=== PATIENT | male | born 1940 ===

== ENCOUNTER 2017-03-05 02:30 | Inpatient (IN) | payer OTHER ==
[~2017-03-05] VITALS: Ht 165.1 cm; Wt 62.1 kg
[~2017-03-05 02:30] MED LIST: FLOMAX0.4 M1 PO; MICARDIS HCT 81 EAC1 PO; OMEPRAZOLE20 M2 PO
[2017-03-05 06:39] LABS: ABSOLUTE BASOPHIL COUNT 0 /CUMM (0.0-0.2); ABSOLUTE EOSINOPHIL COUNT 0.2 /CUMM (0.0-0.7); ABSOLUTE GRANULOCYTE CT 4.1 /CUMM (1.4-6.5); ABSOLUTE LYMPH COUNT 2.6 /CUMM (1.2-3.4); ABSOLUTE MONOCYTE COUNT 0.4 /CUMM (0.10-0.60); BASOPHIL % 0.6 % (0.0-2.0); EOSINOPHIL % 2.6 % (0-5); GRANULOCYTE % 56.1 % (42.2-75.2); HEMATOCRIT 40.4 % (42-52); MEAN CORPUSCULAR HGB 29.1 PG (27.0-31.0); MEAN CORPUSCULAR HGB CONC 33.3 G/DL (33.0-37.0); MEAN CORPUSCULAR VOLUME 87.4 FL (80.0-94.0); PLATELET COUNT 293 /CUMM (130-400); PT 10.8 SEC (9.4-12.5); PTT 31 SEC (25-37); RBC DISTRIBUTION WIDTH 14.1 % (11.5-14.5); RED BLOOD CELL CT 4.63 /CUMM (4.70-6.10); WHITE BLOOD CELL COUNT 7.3 /CUMM (4.8-10.8)
--- NOTE | 2017-03-05 07:35 | History & Physical Pre-Op ---
General Information and HPI MD Statement: I have seen and personally examined LORNA ZENG and documented this H&P. The patient is a 76 year old M who presented with a patient stated chief complaint of NECK PAIN RADIATING TO RIGHT ARM WITH PROGRESSIVE WEAKNESS. Source of Information: patient, family Exam Limitations: no limitations History of Present Illness: Mr. Zeng is a 76y/o male who is c/o 2 year history of progressively worsening neck pain radiating to his right arm with numbness, tingling, and weakness. HE c /o headaches and dizziness. Pain level is 8/10 in intensity. His MRI reveals severe spinal stenosis at C4-5, C5-6, and C6-7 with nerve impingement consistent with his symptoms. He cannot stand the pain any longer and due to his progressively worsening weakness, he has risk of permanent paralysis. He wants nothing more to do with nonsurgical treatment and has been scheduled for an Anterior/Posterior Cervical decompression/Fusion C4-7 with Instr./ICBG on 2016. Allergies/Medications Allergies: Coded Allergies: No Known Allergies (03/03/17) Home Med list Omeprazole 20 MG CAPSULE.DR 1 CAP PO DAILY GERD (Reported) Tamsulosin HCl (Flomax) 0.4 MG CAP.ER.24H 1 CAP PO DAILY BPH (Reported) Telmisartan/Hydrochlorothiazid (Micardis Hct 80-25 MG Tablet) 80 MG-25 MG TABLET 1 TAB PO DAILY HTN (Reported) Compliance With Home Meds: GOOD Past History Medical History Neurological: NONE EENT: NONE Cardiovascular: hypertension Respiratory: lung cancer history Gastrointestinal: GERD Hepatic: NONE Renal: benign prost hyperplasia Musculoskeletal: disk herniation, degen joint disease, osteoarthritis, spinal stenosis Psychiatric: NONE Endocrine: NONE Blood Disorders: NONE Cancer(s): lung cancer 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 Psychosocial History Where Do You Live? 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 Exam & Diagnostic Data Physical Exam: Weight: 137lbs. Height: 5'3" Physical Exam General Appearance Alert, Oriented X3, Cooperative, No Acute Distress Skin No Rashes, No Breakdown, No Significant Lesion HEENT Atraumatic, PERRLA, EOMI, Mucous Membr. moist/pink Neck Supple, No JVD, No thryomegaly, +2 Carotid Pulse wo Bruit Lymphatic Cervical nl Cardiovascular Regular Rate, Normal S1, Normal S2, No Murmurs Lungs Clear to Auscultation Abdomen Normal Bowel Sounds, Soft, No Tenderness, No Hepatospenomegaly, No Masses Neurological Normal Speech, right cupola patcher +3/5. Weak triceps, biceps on right +3/5. , absent tim. upper extremity reflexes., right wrist clonus, +Coughlin's on the right. Extremities No Clubbing, No Cyanosis, No Edema, Normal Pulses Vascular Normal Pulses Last 24 Hrs of Labs/Rodrick: Laboratory Tests 03/05/17 0612: Anion Gap 10, Estimated GFR 59 L, BUN/Creatinine Ratio 12.5, Glucose 103 H, Calcium 9.6, Total Bilirubin 0.7, AST 20, ALT 27, Alkaline Phosphatase 74, Total Protein 7.0, Albumin 4.3, Globulin 2.7, Albumin/Globulin Ratio 1.6, PT 10.8, INR 1.03, APTT 31, CBC w Diff NO MAN DIFF REQ, RBC 4.63 L, MCV 87.4, MCH 29.1, RDW 14.1, MPV 8.0, Gran % 56.1, Lymphocytes % 35.0, Monocytes % 5.7, Eosinophils % 2.6, Basophils % 0.6, Absolute Granulocytes 4.1, Absolute Lymphocytes 2.6, Absolute Monocytes 0.4, Absolute Eosinophils 0.2, Absolute Basophils 0, PUBS MCHC 33.3, Urine Color YEL, Urine Clarity CLEAR, Urine pH 6.0, Ur Specific [place] 1.010, Urine Protein NEG, Urine Ketones NEG, Urine Nitrite NEG, Urine Bilirubin NEG, Urine Urobilinogen 0.2, Ur Leukocyte Esterase NEG, Ur Microscopic EXAM NOT REQUIRED, Urine Hemoglobin NEG, Urine Glucose NEG Assessment/Plan Assessment/Plan: Assessment: Severe C4-5, C5-6, 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 Plan: Mr. Zeng is scheduled for an Anterior/Posterior Cervical Decompression/ Fusion C4-7 with Instr./ICBG on 03/05/17. We discussed the procedure in full detail as well as the pre and postoperative curse, follow-up care, anticipated recovery, and discharge instructions. We also discussed the risks not to exclude , paralysis, infection, bleeding, continued pain, failure of the surgery, need for future surgery, DVT, vascular injury, CSF leak, dysphagia, horseness, etc. and given these risks, he still wishes to proceed. He was cleared medically. Any changes in this patient's plan is based on this patient's outpatient clinical presentation. As Ranked By This Provider Problem List: 1. Hypertension 2. BPH (benign prostatic hyperplasia) 3. GERD (gastroesophageal reflux disease) Copies To: BAUDILIO HUNT,JOSE Attending MD Review Statement Attending Statement Attending MD Statement: examined this patient, discuss w/resident/PA/STONE CUTTER, agreed w/resident/PA/STONE CUTTER, reviewed images
--- NOTE | 2017-03-05 10:27 | Operative Report ---
Operative/Inv Procedure Report Surgery Date: 03/05/17 Name of Procedure: Anterior cervical discectomy decompression C45 C5 6 C6 7. Interdiscal cage fusion with autograft. Anterior plate fixation C 4 through C7. Harvesting of morselized iliac crest left crest anterior. Reconstruction of bone graft site with Master graft implant. Use of fluoroscopy. Pre-Operative Diagnosis: Cervical spinal stenosis C4 5 C5 6 C6 7 Post-Operative Diagnosis: Same additional diagnoses osteoporosis. Estimated Blood Loss: less than 50ml Surgeon/Snailer: BAUDILIO HUNT,JOSE ROWLAND Anesthesia: general endotracheal tube Operative/Procedure Note Note: After adequate anesthesia was achieved the place patient was placed in the supine position with the head turned left and the shoulders taped to the side. The right side of the neck and left anterior iliac crest was sterile prepped and draped. A longitudinal incision was created with the scalpel carried sharply through the platysma. Blunt dissection was carried medial to the neurovascular bundle lateral to the visceral structures and a metallic optic was placed. Fluoroscopy was used to identify surgical level. Sharp enterotomies were created and C4 5 C5 6 and C6 7. The curettes and rongeurs were used to perform discectomies at all 3 levels. There is severe degenerative changes and foraminal stenosis on the right side consistent with the clinical findings. The endplates were debrided with the high-speed bur at all 3 levels. An incision was made over the left anterior iliac crest. The oscillating saw was used to collect morcellized bone graft. The wound was irrigated and packed with Master graft. A closure of the fascia was performed with absorbable suture the skin was closed with maru. The disc space sizes were identified to be 6 mm 6 mm 7 mm. The cages were packed with bone tamped into position well away from the neural canal under fluoroscopic guidance. The anterior plate was applied from C4 to C7. Marginal purchase was achieved at all 8 screws. During harvesting the bone graft patient was identified to suffer from osteoporosis relatively severe. In discussions with anesthesia decision was made to close the wound and stage the procedure due to the patient's frail medical condition. AP and lateral fluoroscopy showed appropriate position of the hardware. He was irrigated and hemostasis been achieved. The platysma was closed with a running absorbable suture the skin was closed with nylon. After placement sterile dressings a cervical collar was placed the patient was transferred to the stretcher and recovery room.
--- NOTE | 2017-03-05 11:17 | Patient Discharge Instructions ---
Acute Coronary Syndrome Inclusion Criteria At DC or during hospital stay patient has or had the following: ACS DIAGNOSIS No Discharge Core Measures Meds if any: Prescribed or Continued at Discharge Meds if any: NOT Prescribed or Continued at Discharge Congestive Heart Failure Inclusion Criteria At DC or during hospital stay patient has or had the following: CHF DIAGNOSIS No Discharge Core Measures Meds if any: Prescribed or Continued at Discharge Meds if any: NOT Prescribed or Continued at Discharge Cerebrovascular accident Inclusion Criteria At DC or during hospital stay patient has or had the following: CVA/TIA Diagnosis No Discharge Core Measures Meds if any: Prescribed or Continued at Discharge Meds if any: NOT Prescribed or Continued at Discharge Venous thromboembolism Inclusion Criteria VTE Diagnosis No VTE Type NONE VTE Confirmed by (Test) NONE Discharge Core Measures - Per Current guidelines, there needs to be overlap - treatment for the first 5 days of Warfarin therapy. - If discharged on Warfarin prior to 5 days of - overlap therapy, the patient will need to be - assessed for post discharge needs including - *Post discharge parental anticoagulation - *Warfarin and/or parental anticoagulation education - *Follow up date to check INR post discharge At least 5 days overlap therapy as Inpatient No Meds if any: Prescribed or Continued at Discharge Note: Overlap Therapy is Warfarin and Anticoagulant Meds if any: NOT Prescribed or Continued at Discharge
[2017-03-05] MEDS ORDERED: VITAMIN D31000 UNI2 PO (11:19)
[2017-03-05] MEDS ORDERED: PERCOCET 5-3251 EACH PO (11:25)
[2017-03-05] MEDS ORDERED: CALCIUM CARBON500 M2 PO (11:25)
[2017-03-05] MEDS ORDERED: DOCUSATE SODIU100 M3 PO (11:25)
[2017-03-05] MEDS ORDERED: BISAC-EVAC10 M1 PR (11:25)
[2017-03-05] MEDS ORDERED: ONE DAILY MULT1 EAC2 PO (11:25)
[2017-03-05] MEDS ORDERED: MILK OF MA400 MG/52 PO (11:25)
[2017-03-05] MEDS ORDERED: TYLENOL325 M1 PO (11:25)
--- NOTE | 2017-03-05 11:44 | RADIOLOGY REPORT ---
EXAMINATION: XR CERVICAL SPINE CLINICAL INFORMATION: Cervical fusion C4 C7 performed in operating room. COMPARISON: None TECHNIQUE: Fluoroscopic imaging of cervical spine was utilized by Dr. Cuevas within the operating room. Number of saved fluoroscopic images: 6. Fluoroscopy time: 0.6 minutes. Dose: 5.51 mGy. FINDINGS: Patient intubated within operating room. Discectomy and fusion of C4-C5, C5-C6 and C6-C7. The final AP and lateral fluoroscopic images show satisfactory position and alignment of the anterior fusion plate and vertebral body screws. Cervical alignment is anatomic. IMPRESSION: Fluoroscopic imaging assistance provided to the operating room during multilevel discectomy and anterior fusion at C4 - C7.
--- NOTE | 2017-03-05 13:00 | NUR ---
PATIENT ARRIVED ON UNIT FROM PACU. PATIENT ADMITTED S/P ANTERIO POSTERIO DECOMPRESSION/FUSSION OF C6 -C7. HX OF DJD AND OSTEOARTHRITIS. PATIENT IS ALERT AND ORIENTATED X3. VSS. SOFT CERVICAL COLLAR IN PLACE. DSG CDI UNDERNEATH. PATIENT ALSO HAS LEFT HIP DSG CDI. GOOD CMS. CARDIOPULMONARY STABLE. VOIDED 200CC OF CLEAR YELLOW URINE. IV FLUIDS LR AT 80CC/HR. ORIENTATED TO ROOM AND CALL LIGHT. WILL FOLLOW PLAN OF CARE.
[2017-03-05 13:17] VITALS: BP 166/78
--- NOTE | 2017-03-05 14:42 | Cons- Medical ---
NEREIDA HUANG 03/05/17 1442: General Information and HPI Consulting Request Date of Consult: 03/05/17 Requested By: JOSE ASTUDILLO MD Source of Information: patient, family, old records Exam Limitations: no limitations History of Present Illness: Patient is a 76-year-old gentleman with past medical history significant for hypertension, hyperlipidemia, lung cancer status post right lobectomy, GERD, degenerative disc disease with herniation, history of severe cervical spinal stenosis leading to progressive worsening neck pain and was admitted to [facility] under surgical service for Anterior/Posterior Cervical decompression/ Fusion C4-7 with autograft. Doing the patient, blood pressure was elevated systolic between 170-180 ,patient was given IV antihypertensive once and his blood pressure improved. No evidence of bradycardia. Preop EKG showed normal sinus rhythm. Patient mentioned that he took his medications before coming to the surgery today. He usually takes Micardis(combination of losartan and hydrochlorothiazide) with tamsulosin for BPH. At the time of evaluation patient denied any chest of heart trouble breathing palpitations. Diet has been resumed, denies any nausea or abdominal pain. Still reports some soreness around the surgical site. Allergies/Medications Allergies: Coded Allergies: No Known Allergies (03/03/17) Home Med List: Acetaminophen (Tylenol) 325 MG TABLET 650 MG PO Q4P PRN TEMP > 101.5 Bisacodyl (Bisac-Evac) 10 MG SUPP.RECT 10 MG VT DAILY NEEDED PRN CONSTIPATION Calcium Carbonate 500 MG CALCIUM (1,250 MG) TABLET 600 MG PO BID BONE HEALTH Cholecalciferol (Vitamin D3) 1,000 UNIT TABLET 1 TAB PO DAILY BONE HE[facility] ( Reported) Docusate Sodium 100 MG CAPSULE 100 MG PO BID CONSTIPATION Magnesium Hydroxide (Milk Of Magnesia) 400 MG/5 ML ORAL.SUSP 30 ML PO AT BEDTIME PRN CONSTIPATION Multivitamin (One Daily Multivitamin) 1 EACH TABLET 1 TAB PO DAILY GENERAL HEALTH Omeprazole 20 MG CAPSULE.DR 1 CAP PO DAILY GERD (Reported) Oxycodone HCl/Acetaminophen (Percocet 5-325 MG Tablet) 5 MG-325 MG TABLET 2 TAB PO Q4P PRN PAIN SCALE 4-6 (MODERATE) 1-2 TABS PO Q 4-6 HRS PRN PAIN Tamsulosin HCl (Flomax) 0.4 MG CAP.ER.24H 1 CAP PO DAILY BPH (Reported) Telmisartan/Hydrochlorothiazid (Micardis Hct 80-25 MG Tablet) 80 MG-25 MG TABLET 1 TAB PO DAILY HTN (Reported) Review of Systems Review of Systems Constitutional: Denies: chills, diaphoresis, fever. EENTM: Denies: blurred vision, visual changes, eye pain, eye drainage. Cardiovascular: Denies: chest pain, edema, orthopena. Respiratory: Denies: cough, hemoptysis, orthopnea. GI: Denies: abdominal pain, bloating, constipation. Genitourinary: Denies: discharge, dysuria, frequency. Musculoskeletal: Denies: back pain, gout, joint pain. Skin: Denies: cysts, change in skin color, change in hair/nails, dryness. Neurological/Psychological: Denies: anxiety, ataxia, confusion. Hematologic/Endocrine: Denies: bruising, bleeding. 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 Ears, Nose, Throat: normal pharynx, normal ENT inspection Respiratory: normal breath sounds, chest non-tender Cardiovascular: regular rate/rhythm, edema Gastrointestinal: normal bowel sounds, soft, non-tender Back: normal inspection Last 24 Hrs of Labs/Rodrick: Laboratory Tests 03/05/17 0612: Anion Gap 10, Estimated GFR 59 L, BUN/Creatinine Ratio 12.5, Glucose 103 H, Calcium 9.6, Total Bilirubin 0.7, AST 20, ALT 27, Alkaline Phosphatase 74, Total Protein 7.0, Albumin 4.3, Globulin 2.7, Albumin/Globulin Ratio 1.6, PT 10.8, INR 1.03, APTT 31, CBC w Diff NO MAN DIFF REQ, RBC 4.63 L, MCV 87.4, MCH 29.1, RDW 14.1, MPV 8.0, Gran % 56.1, Lymphocytes % 35.0, Monocytes % 5.7, Eosinophils % 2.6, Basophils % 0.6, Absolute Granulocytes 4.1, Absolute Lymphocytes 2.6, Absolute Monocytes 0.4, Absolute Eosinophils 0.2, Absolute Basophils 0, PUBS MCHC 33.3, Urine Color YEL, Urine Clarity CLEAR, Urine pH 6.0, Ur Specific [place] 1.010, Urine Protein NEG, Urine Ketones NEG, Urine Nitrite NEG, Urine Bilirubin NEG, Urine Urobilinogen 0.2, Ur Leukocyte Esterase NEG, Ur Microscopic EXAM NOT REQUIRED, Urine Hemoglobin NEG, Urine Glucose NEG Assessment/Plan Assessment/Plan Patient is a 76-year-old gentleman with past medical history significant for hypertension, hyperlipidemia, lung cancer status post right lobectomy, GERD, degenerative disc disease with herniation, history of severe cervical spinal stenosis leading to progressive worsening neck pain and was admitted to [facility] under surgical service for Anterior/Posterior Cervical decompression/ Fusion C4-7 with autograft Preop of EKG: Showed normal sinus rhythm in 70s Assessment and plan: Medical optimization of blood pressure after the surgery: * Currently blood pressure is stable 166/78 with pulse of 78. * IV fluids have been discontinued. * Resume home medications including Micardis(losartan and hydrochlorothiazide) * Monitor vitals every 4 hours. History of BPH: * Continue tamsulosin. Anterior/Posterior Cervical decompression/Fusion C4-7 with autograft * Continue management as per surgical team Problem List: 1. Hypertension 2. BPH (benign prostatic hyperplasia) 3. GERD (gastroesophageal reflux disease) Consult Acknowledgment - Thank you for your consult request. FRANKIE LANZA MD 03/05/17 7727: Assessment/Plan Consult Acknowledgment - Thank you for your consult request. Attending MD Review Statement Attending Statement Attending MD Statement: examined this patient, discuss w/resident/PA/MISSILE TRACKING TECHNICIAN, agreed w/resident/PA/MISSILE TRACKING TECHNICIAN, reviewed EMR data (avail), discussed with nursing Attending Assessment/Plan: 76 year old with HTN, HLD, h/o lung ca s/p lobectomy and GERD here now s/p anterior cervical fusion and disc surgery. We were called for co management of HTN. BP now failry well controlled on pt's outpt regimen of HCTZ and Losartan. Will follow closely. Wean off fluids and pain mx and DVT prophylaxis per surgical team.
--- NOTE | 2017-03-05 14:48 | PN- Orthopedic ---
Subjective Subjective: POSTOP CHECK Feeling well, RUE "improved already" still weak but has improved motor fxn, eating lunch, no OOB, +void, no cp/sob/n/v Objective Vital Signs and I&Os Vital Signs Date Time Temp Pulse Resp B/P B/P Pulse O2 O2 Flow FiO2 Mean Ox Delivery Rate 03/05 1317 97.7 76 18 166/78 97 Room Air Room Air Intake & Output 03/05 0000 03/04 0000 Intake Total 0 Output Total 200 Balance -200 Intake, Oral 0 Output, Urine 200 Patient 137 lb Weight Weight Reported by Patient Measurement Method Physical Exam: GEN-NAD CARD- S1S2 RRR PULM- no audible wheeze NECK- incision dressed, cdi, ttp at incision, collar in place EXT- RUE weak gas turbine 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 Left hip dressing cdi, ttp at incision Current Medications: Current Medications Sig/Hector Start time Last Medication Dose Route Stop Time Status Admin Acetaminophen 650 MG Q4P PRN 03/05 1100 AC PO Bisacodyl 10 MG DAILY NEEDED PRN 03/05 1100 AC UT Calcium 600 MG BID 03/05 220 AC PO Cefazolin Sodium 1,000 MG IQ8 03/05 1600 AC IV 03/06 0801 Cefazolin Sodium 2,000 MG ONCE 03/05 0000 NR IV 03/05 2359 Cholecalciferol 1,000 IU DAILY 03/06 1000 AC PO Docusate Sodium 100 MG BID 03/05 2200 AC PO Hydrochlorothiazide 25 MG DAILY 03/06 1000 AC PO Lactated Ringer's 1,000 ML .[id number] 03/05 1115 AC 03/05 IV 1342 Losartan Potassium 100 MG DAILY 03/06 1000 AC PO Magnesium Hydroxide 30 ML AT BEDTIME PRN 03/05 1115 AC PO Morphine Sulfate 1 MG Q3P PRN 03/05 1100 AC IV Multivitamins 1 TAB DAILY 03/06 1000 AC PO Omeprazole 20 MG DAILY AC 03/06 0700 AC PO Ondansetron HCl 4 MG Q6P PRN 03/05 1100 AC IV Oxycodone/ 1 TAB Q4P PRN 03/05 1100 AC Acetaminophen PO Oxycodone/ 2 TAB Q4P PRN 03/05 1100 AC Acetaminophen PO Tamsulosin HCl 0.4 MG DAILY 03/05 105 AC PO Trimethobenzamide HCl 200 MG Q6P PRN 03/05 1100 AC IM Results Last 48 Hours of Labs: Laboratory Tests 03/05 612 Chemistry Sodium (137 - 145 mmol/L) 140 Potassium (3.5 - 5.1 mmol/L) 3.6 Chloride (98 - 107 mmol/L) 100 Carbon Dioxide (22 - 30 mmol/L) 30 Anion Gap (5 - 16) 10 BUN (9 - 20 mg/dL) 15 Creatinine (0.7 - 1.2 mg/dL) 1.2 Estimated GFR (>60 ml/min) 59 L BUN/Creatinine Ratio (7 - 25 %) 12.5 Glucose (65 - 99 mg/dL) 103 H Calcium (8.4 - 10.2 mg/dL) 9.6 Total Bilirubin (0.2 - 1.3 mg/dL) 0.7 AST (17 - 59 U/L) 20 ALT (21 - 72 U/L) 27 Alkaline Phosphatase (< 127 U/L) 74 Total Protein (6.3 - 8.2 g/dL) 7.0 Albumin (3.5 - 5.0 g/dL) 4.3 Globulin (1.9 - 4.2 gm/dL) 2.7 Albumin/Globulin Ratio (1.1 - 2.2 %) 1.6 Coagulation PT (9.4 - 12.5 SEC) 10.8 INR (0.90 - 1.17) 1.03 APTT (25 - 37 SEC) 31 Hematology CBC w Diff NO MAN DIFF REQ WBC (4.8 - 10.8 /CUMM) 7.3 RBC (4.70 - 6.10 /CUMM) 4.63 L Hgb (14.0 - 18.0 G/DL) 13.5 L Hct (42 - 52 %) 40.4 L MCV (80.0 - 94.0 FL) 87.4 MCH (27.0 - 31.0 PG) 29.1 RDW (11.5 - 14.5 %) 14.1 Plt Count (130 - 400 /CUMM) 293 MPV (7.4 - 10.4 FL) 8.0 Gran % (42.2 - 75.2 %) 56.1 Lymphocytes % (20.5 - 51.1 %) 35.0 Monocytes % (1.7 - 9.3 %) 5.7 Eosinophils % (0 - 5 %) 2.6 Basophils % (0.0 - 2.0 %) 0.6 Absolute Granulocytes (1.4 - 6.5 /CUMM) 4.1 Absolute Lymphocytes (1.2 - 3.4 /CUMM) 2.6 Absolute Monocytes (0.10 - 0.60 /CUMM) 0.4 Absolute Eosinophils (0.0 - 0.7 /CUMM) 0.2 Absolute Basophils (0.0 - 0.2 /CUMM) 0 PUBS MCHC (33.0 - 37.0 G/DL) 33.3 Urines Urine Color (YEL,AMB,STR) YEL Urine Clarity (CLEAR) CLEAR Urine pH (5.0 - 8.0) 6.0 Ur Specific [place] (1.001 - 1.035) 1.010 Urine Protein (NEG,<30 MG/DL) NEG Urine Ketones (NEG) NEG Urine Nitrite (NEG) NEG Urine Bilirubin (NEG) NEG Urine Urobilinogen (0.1 - 1.0 EU/dl) 0.2 Ur Leukocyte Esterase (NEG) NEG Ur Microscopic EXAM NOT REQUIRED Urine Hemoglobin (NEG) NEG Urine Glucose (N MG/DL) NEG Assessment/Plan Assessment/Plan A: POD0 sp anterior c4/5,5/6, 6/7 decompression/fusion w L icbg, PMHx htn,bpd, gerd, lung ca sp r lobectomy, stable with improved neurological fxn RUE postoperatively. P: prn pain meds pt, oob, wbat cervical collar home meds diet as tolerated, HL eventual posterior procedure likely Core Measures/Miscellaneous Venous Thromboembolism VTE Risk Factors: Surgery VTE Contraindications: No Contraindications VTE Diagnosis: No Beta Beth Is Beta Beth a Home Med? No Antibiotics Is Patient on Antibiotics? Yes If Yes: prophylaxis
[2017-03-05 22:29] VITALS: BP 118/70
[2017-03-06 06:41] VITALS: BP 120/60
--- NOTE | 2017-03-06 07:23 | PN- Medicine Consult ---
NEREIDA HUANG 03/06/17 0722: Assessment/Plan Assessment/Plan Assessment: Patient is a 76-year-old gentleman with past medical history significant for hypertension, hyperlipidemia, lung cancer status post right lobectomy, GERD, degenerative disc disease with herniation, history of severe cervical spinal stenosis leading to progressive worsening neck pain and was admitted to [facility] under surgical service for Anterior/Posterior Cervical decompression/ Fusion C4-7 with autograft. Plan: Preop of EKG: Showed normal sinus rhythm in 70s Assessment and plan: Medical optimization of blood pressure after the surgery: * Currently blood pressure is stable, 120/60 with pulse of 72. * Home medications including including Micardis(losartan and hydrochlorothiazide ) have been resumed. * Monitor vitals every 4 hours. History of BPH: * Continue tamsulosin. Anterior/Posterior Cervical decompression/Fusion C4-7 with autograft * Continue management as per surgical team. * If patient remains stable will be discharged today. Problem List: 1. Hypertension Subjective Subjective: Pt is seen and examined this morning.Slept welll over night , denies any complaints. BP has been stable.No evidence of bradycardia , If pt remains stable will be discharged later during the day. Review of Systems Constitutional: Denies: chills, diaphoresis, fever. EENTM: Denies: double vision, visual changes, eye pain. Cardiovascular: Denies: chest pain, edema, orthopena. Respiratory: Denies: cough, hemoptysis, orthopnea. Gastrointestinal: Denies: abdominal pain, bloating, constipation. Genitourinary: Denies: discharge, dysuria, frequency. Musculoskeletal: Denies: back pain, gout, joint pain. Skin: Denies: change in hair/nails, dryness. Objective Last 24 Hrs of Vital Signs/I&O Vital Signs Date Time Temp Pulse Resp B/P B/P Pulse O2 O2 Flow FiO2 Mean Ox Delivery Rate 03/06 0641 98.4 72 20 120/60 95 Room Air 03/05 2229 98.3 85 20 118/70 96 / 1646 90 140/72 07 1317 97.7 76 18 166/78 97 Room Air Room Air Intake & Output 03/06 0800 07/ 0000 03/05 1600 Intake Total 480 880 Output Total 325 250 350 Balance -325 230 530 Intake, IV 160 Intake, Oral 480 720 Output, Urine 325 250 350 Patient 137 lb Weight Weight Reported by Patient Measurement Method Physical Exam General Appearance: well developed/nourished, no apparent distress Head: atraumatic, normal appearance, active bleeding Ears, Nose, Throat: normal pharynx, normal ENT inspection, hearing grossly normal, abnormal Tympanic (R), abnormal Typanic (L), sinus pain/drainage, nasal congestion, hearing decreased, pharyngeal erythema, tonsillar exudate, tonsillar swelling, moist mucus membranes, septal hematoma, ulcerations/vesicles Cardiovascular: regular rate/rhythm Respiratory: normal breath sounds, chest non-tender, no respiratory distress Abdomen: normal bowel sounds, soft, non-tender Extremities: normal inspection Current Medications: Current Medications Sig/Hector Start time Last Medication Dose Route Stop Time Status Admin Acetaminophen 650 MG Q4P PRN 03/05 1100 AC PO Bisacodyl 10 MG DAILY NEEDED PRN 03/05 1100 AC WI Calcium 600 MG BID 03/05 220 AC 03/05 PO 2106 Cefazolin Sodium 1,000 MG IQ8 03/05 1600 AC 03/05 IV 03/06 0801 2334 Cefazolin Sodium 2,000 MG ONCE 03/05 0000 DC IV 03/05 2359 Cholecalciferol 1,000 IU DAILY 03/06 1000 AC PO Docusate Sodium 100 MG BID 03/05 2200 AC 03/05 PO 2106 Hydrochlorothiazide 25 MG DAILY 03/06 1000 AC PO Lactated Ringer's 1,000 ML .[id number] 03/05 1115 DC 03/05 IV 1342 Losartan Potassium 100 MG DAILY 03/06 1000 AC PO Magnesium Hydroxide 30 ML AT BEDTIME PRN 03/05 1115 AC PO Morphine Sulfate 1 MG Q3P PRN 03/05 1100 AC IV Multivitamins 1 TAB DAILY 03/06 1000 AC PO Omeprazole 20 MG DAILY AC 03/06 0700 AC 03/06 PO 0547 Ondansetron HCl 4 MG Q6P PRN 03/05 1100 AC IV Oxycodone/ 1 TAB Q4P PRN 03/05 1100 AC Acetaminophen PO Oxycodone/ 2 TAB Q4P PRN 03/05 1100 AC 03/06 Acetaminophen PO 0548 Tamsulosin HCl 0.4 MG DAILY 03/05 1058 AC 03/05 PO 1646 Trimethobenzamide HCl 200 MG Q6P PRN 03/05 1100 AC IM Results Last 24 Hrs Lab/[facility]rick Results: Microbiology 03/05 0800 URINE ROUT: Urine Culture - ROHAN LANZA MD,FRANKIE 03/06/17 1019: Attending MD Review Statement Attending Sign Off Attending Cosign Statement: I have: examined this patient, reviewed [facility] EMR data, personally reviewd images, discussd w/resident/PA/SUPERVISOR COATING, agreed w/resident/PA/SUPERVISOR COATING. Other Findings: Patient is doing well and his blood pressure is normal at 120/60 over his usual Micardis regimen which is the ARB and hydrochlorothiazide. At this point will sign off given that the pressure is okay. Continue his hypertensive and BPH meds and plan as per surgery, likely dc later today .
[2017-03-06 14:28] VITALS: BP 120/62
--- NOTE | 2017-03-06 15:40 | PN- Orthopedic ---
Subjective Subjective: Mr. Beverly is c/o expected postop incisional pain. No preop right arm symptoms. + mild residual tingling as expected. No dysphagia, hoarseness, SOB, CP, Fever/ chills. Griselda. po. Ambulating without difficulty with walker. Griselda. Percocet. Review of Systems: Remarkable for the above complaints. Objective Vital Signs and I&Os Vital Signs Date Time Temp Pulse Resp B/P B/P Pulse O2 O2 Flow FiO2 Mean Ox Delivery Rate 03/06 1428 99.3 77 20 120/62 99 Room Air 03/06 1115 Room Air Room Air 03/06 0834 87 110/78 03/06 0833 87 110/76 / 0641 98.4 72 20 120/60 95 Room Air 03/05 2229 98.3 85 20 118/70 96 03/05 1646 90 140/72 Intake & Output 03/06 1600 03/06 0800 / 0000 03/05 1600 03/05 0800 03/05 0000 Intake Total 600 360 480 880 Output Total 150 325 250 350 Balance 450 35 230 530 Intake, IV 160 Intake, Oral 600 360 480 720 Output, Urine 150 325 250 350 Patient 137 lb Weight Weight Reported by Patient Measurement Method Physical Exam General Appearance: well developed/nourished, no apparent distress, alert, awake , comfortable Head: atraumatic, normal appearance Neck: supple, Incision C/D/I. Dressings changed., mild ecchymosis. Respiratory: normal breath sounds, no respiratory distress Cardiovascular: regular rate/rhythm Abdomen: normal bowel sounds, soft, non-tender Extremities: normal capillary refill, Neurovascularly stable without any new or worsening gross motor or sensory loss. Neurologic/Psychiatric: awake, alert, oriented x 3 Skin: intact, normal color, warm/dry Current Medications: Current Medications Sig/Hector Start time Last Medication Dose Route Stop Time Status Admin Acetaminophen 650 MG Q4P PRN 03/05 1100 AC PO Bisacodyl 10 MG DAILY NEEDED PRN 03/05 1100 AC TX Calcium 600 MG BID 03/05 2200 AC 03/06 PO 0829 Cefazolin Sodium 1,000 MG IQ8 03/05 1600 DC 03/06 IV 03/06 0801 0837 Cefazolin Sodium 2,000 MG ONCE 03/05 0000 DC IV 03/05 2359 Cholecalciferol 1,000 IU DAILY 03/06 1000 AC 03/06 PO 0835 Docusate Sodium 100 MG BID 03/05 2200 AC 03/06 PO 0830 Hydrochlorothiazide 25 MG DAILY 03/06 1000 AC 03/06 PO 0835 Losartan Potassium 100 MG DAILY 03/06 1000 AC 03/06 PO 0833 Magnesium Hydroxide 30 ML AT BEDTIME PRN 03/05 1115 AC PO Morphine Sulfate 1 MG Q3P PRN 03/05 1100 AC IV Multivitamins 1 TAB DAILY 03/06 1000 AC 03/06 PO 0837 Omeprazole 20 MG DAILY AC 03/06 07 AC 03/06 PO 0547 Ondansetron HCl 4 MG Q6P PRN 03/05 1100 AC IV Oxycodone/ 2 TAB .STK-MED ONE 03/06 0548 DC Acetaminophen PO 03/06 0549 Oxycodone/ 1 TAB Q4P PRN 03/05 1100 AC Acetaminophen PO Oxycodone/ 2 TAB Q4P PRN 03/05 1100 AC 03/06 Acetaminophen PO 1512 Tamsulosin HCl 0.4 MG DAILY 03/05 1058 AC 03/06 PO 0834 Trimethobenzamide HCl 200 MG Q6P PRN 03/05 1100 AC IM Results Last 48 Hours of Labs: Laboratory Tests 03/05 612 Chemistry Sodium (137 - 145 mmol/L) 140 Potassium (3.5 - 5.1 mmol/L) 3.6 Chloride (98 - 107 mmol/L) 100 Carbon Dioxide (22 - 30 mmol/L) 30 Anion Gap (5 - 16) 10 BUN (9 - 20 mg/dL) 15 Creatinine (0.7 - 1.2 mg/dL) 1.2 Estimated GFR (>60 ml/min) 59 L BUN/Creatinine Ratio (7 - 25 %) 12.5 Glucose (65 - 99 mg/dL) 103 H Calcium (8.4 - 10.2 mg/dL) 9.6 Total Bilirubin (0.2 - 1.3 mg/dL) 0.7 AST (17 - 59 U/L) 20 ALT (21 - 72 U/L) 27 Alkaline Phosphatase (< 127 U/L) 74 Total Protein (6.3 - 8.2 g/dL) 7.0 Albumin (3.5 - 5.0 g/dL) 4.3 Globulin (1.9 - 4.2 gm/dL) 2.7 Albumin/Globulin Ratio (1.1 - 2.2 %) 1.6 Coagulation PT (9.4 - 12.5 SEC) 10.8 INR (0.90 - 1.17) 1.03 APTT (25 - 37 SEC) 31 Hematology CBC w Diff NO MAN DIFF REQ WBC (4.8 - 10.8 /CUMM) 7.3 RBC (4.70 - 6.10 /CUMM) 4.63 L Hgb (14.0 - 18.0 G/DL) 13.5 L Hct (42 - 52 %) 40.4 L MCV (80.0 - 94.0 FL) 87.4 MCH (27.0 - 31.0 PG) 29.1 RDW (11.5 - 14.5 %) 14.1 Plt Count (130 - 400 /CUMM) 293 MPV (7.4 - 10.4 FL) 8.0 Gran % (42.2 - 75.2 %) 56.1 Lymphocytes % (20.5 - 51.1 %) 35.0 Monocytes % (1.7 - 9.3 %) 5.7 Eosinophils % (0 - 5 %) 2.6 Basophils % (0.0 - 2.0 %) 0.6 Absolute Granulocytes (1.4 - 6.5 /CUMM) 4.1 Absolute Lymphocytes (1.2 - 3.4 /CUMM) 2.6 Absolute Monocytes (0.10 - 0.60 /CUMM) 0.4 Absolute Eosinophils (0.0 - 0.7 /CUMM) 0.2 Absolute Basophils (0.0 - 0.2 /CUMM) 0 PUBS MCHC (33.0 - 37.0 G/DL) 33.3 Urines Urine Color (YEL,AMB,STR) YEL Urine Clarity (CLEAR) CLEAR Urine pH (5.0 - 8.0) 6.0 Ur Specific Gray (1.001 - 1.035) 1.010 Urine Protein (NEG,<30 MG/DL) NEG Urine Ketones (NEG) NEG Urine Nitrite (NEG) NEG Urine Bilirubin (NEG) NEG Urine Urobilinogen (0.1 - 1.0 EU/dl) 0.2 Ur Leukocyte Esterase (NEG) NEG Ur Microscopic EXAM NOT REQUIRED Urine Hemoglobin (NEG) NEG Urine Glucose (N MG/DL) NEG Assessment/Plan Assessment/Plan Assessment: S/P ACDF C4-C7 with Instr./ICBG Plan: HLIV. Ambulate with assistance. Continue with po Percocet. Continue ice prn. Plan for D/C in am. Do's and Don'ts explained. Disch. Instr. given. Will F/U in am. Problem List: 1. Hypertension 2. BPH (benign prostatic hyperplasia) 3. GERD (gastroesophageal reflux disease) Core Measures/Miscellaneous Venous Thromboembolism VTE Risk Factors: Surgery VTE Contraindications: No Contraindications VTE Diagnosis: No Beta Beth Is Beta Beth a Home Med? No Antibiotics Is Patient on Antibiotics? Yes If Yes: prophylaxis Attending MD Review Statement Attending Statement Attending MD Statement: examined this patient, discuss w/resident/PA/RAMP JOCKEY, agreed w/resident/PA/RAMP JOCKEY
[2017-03-06 22:16] VITALS: BP 124/68
[2017-03-07 06:36] VITALS: BP 140/68
[2017-03-07 08:00] VITALS: BP 140/68
== END 2017-03-07 13:50 | DRG 473 ==
LOC: SDA 02:30 → ENRESERV 11:22 → ENTRNSPT 12:06 → EDTRNSPTSTS 12:46 → EDTRNSPT 12:46 → 2NB 13:01 → CMPTRNSPT 13:03 → 2NB 03-07 13:50
PROVIDERS: ADMIT Orthopaedic Surgery Orthopaedic Surgery of the Spine
PROC: 0RG20A0 Fusion of 2 or more Cervical Vertebral Joints with Interbody Fusion Device, Anterior Approach, Anterior Column, Open Approach (ICD-10-PCS; principal; 2017-03-05)
PROC: 0RG2070 Fusion of 2 or more Cervical Vertebral Joints with Autologous Tissue Substitute, Anterior Approach, Anterior Column, Open Approach (ICD-10-PCS; 2017-03-05)
PROC: 0QB30ZZ Excision of Left Pelvic Bone, Open Approach (ICD-10-PCS; 2017-03-05)
PROC: 0RT30ZZ Resection of Cervical Vertebral Disc, Open Approach (ICD-10-PCS; 2017-03-05)
DX: M48.02 Spinal stenosis, cervical region (principal); I10 Essential (primary) hypertension; M81.0 Age-related osteoporosis without current pathological fracture; K21.9 Gastro-esophageal reflux disease without esophagitis; Z85.118 Personal history of other malignant neoplasm of bronchus and lung; N40.0 Benign prostatic hyperplasia without lower urinary tract symptoms; M50.321 Other cervical disc degeneration at C4-C5 level
CPT/HCPCS: 2NBP; 36415; 72040; 81003; 87086; 93005; 93010; J0131; J0690; J1100; J2405; J3250; J3490; J7120